=== PATIENT | female | born 1960 | race Caucasian/White ===

== ENCOUNTER 2024-05-28 13:13 | Outpatient (OUT) | payer MEDICARE, SELFPAY ==
--- NOTE | 2024-05-28 | CONS_ITS ---
CONSULTATION DATE: 05/28/2024 TO: Katerina Motley M.D. CHIEF COMPLAINT: Includes right mid lumbar back pain. HISTORY OF PRESENT ILLNESS: Review of systems, past medical/surgical history were obtained and documented on the health questionnaire and is available upon request. She is a 64-year-old female who reports having pain for the last 40 years; however, over the last several years, she has had exacerbation of pain symptoms, which occurred spontaneously, increased gradually to its present state. In the past, she has undergone an epidural injection and a rhizotomy using radiofrequency ablation of the medial branches. Details of this are unknown, but appear to be focused on the L4-5 and L5-S1 levels, in terms of radiofrequency ablation. She reports, despite the improvement of her pain symptoms, the original pain still is significant and alters her quality of life, level of functioning and sleep pattern. CURRENT MEDICATION: Includes Aleve one tablet a day, which she has been taking for several years now, with varying degrees of relief. She has been intolerant to muscle relaxants such as Flexeril or Skelaxin which improved her symptoms but made her somewhat groggy. EXAMINATION: Notable for patient having dysesthesia and hyperesthesia along the distribution of the right L5 dermatome. She appears to have 5/5 strength involving her right EHL, and straight leg raise was equivocally positive at 90 degrees. She has significant myofascial spasm of the lumbar paravertebral muscles with myalgia. She had increasing pain symptoms with lumbar axial loading maneuvers. IMPRESSION: Our impression is patient with chronic pain secondary to possible right L5 radiculopathy along with discogenic pain, myofascial spasm with myalgia. RECOMMENDATIONS: I recommend she consider proceeding with a lumbar MRI without contrast, lumbar spine films, PA and lateral views, using a skin marker; aquatic therapy and baclofen 10 mg, half a pill to one pill at h.s. Will follow up with the patient after she undergoes the imaging studies. As part of providing excellent, safe, comprehensive care, the following was completed at our patient's visit: 1. A medication reconciliation and review to ensure accurate knowledge of current/active medications, including asking our patients to inform us about any vyty-yeo-ujxblai medications or herbal remedies/nutritional supplements/alternative remedies. 2. A review to specifically ensure our patients have had annual screening for: elevated body mass index (BMI, see intake chart for exact total), tobacco use, screening for depression, and screening for unhealthy alcohol use. When screening is concerning, patients are provided with education and the specific recommendation to discuss the concerning health issue and treatment options with their primary care provider. PASCALE
== END 2024-05-28 13:14 | disposition home or self-care (01) ==
LOC: PM 13:13
PROVIDERS: PCP Family Medicine; Visit Provider Anesthesiology Pain Medicine
DX: M47.26 Other spondylosis with radiculopathy, lumbar region (principal); M41.86 Other forms of scoliosis, lumbar region; G89.4 Chronic pain syndrome; M62.838 Other muscle spasm
CPT/HCPCS: 72110; G0463

== ENCOUNTER 2024-05-28 14:19 | Outpatient (OUT) | payer MEDICARE, SELFPAY ==
--- NOTE | 2024-05-28 14:26 | XR_ITS ---
[facility] [place] [id number] Patient Name: SEAN JAMA MRN: [facility]:[id number] date: 1960 Sex: F Assigned Patient Location: [facility] Current Patient Location: Accession/Order Number: [id number] Exam Date: 05/28/2024 14:36 Report Date: 05/29/2024 07:53 At the request of: YA PHIPPS Procedure: XR lumbar spine min 4V EXAMINATION: XR lumbar spine min 4V HISTORY: Lumbar Neuritis COMPARISON: No relevant comparison available. FINDINGS: BONES: Rotatory levoscoliosis centered at the L2 level. Moderate to severe diffuse degenerative spondylosis and facet osteoarthropathy DISC SPACES: Moderate to severe multilevel disc space narrowing PARASPINOUS: Negative. No paraspinous abnormality is seen. OTHER: Negative. XR/XR lumbar spine min 4V IMPRESSION: Moderate to severe degenerative changes with rotatory levoscoliosis Electronically authenticated by: JESSICA PRICE Date: 05/29/2024 07:53
== END 2024-05-28 14:20 | disposition home or self-care (01) ==
LOC: RAD 14:21
PROVIDERS: PCP Family Medicine; Visit Provider Anesthesiology Pain Medicine
DX: M47.26 Other spondylosis with radiculopathy, lumbar region (principal); M41.86 Other forms of scoliosis, lumbar region
CPT/HCPCS: 72110

== ENCOUNTER 2024-06-07 13:25 | Outpatient (OUT) | payer MEDICARE, SELFPAY ==
--- NOTE | 2024-06-07 13:31 | MR_ITS ---
[address] [address] Patient Name: SEAN JAMA MRN: [facility]:[id number] date: 1960 Sex: F Assigned Patient Location: MRI Current Patient Location: Accession/Order Number: [id number] Exam Date: 06/07/2024 13:50 Report Date: 06/09/2024 08:48 At the request of: YA PHIPPS Procedure: MR lumbar spine wo con EXAMINATION: MR lumbar spine wo con HISTORY: Lumbar Neuritis ; chronic lumbar pain COMPARISON: XR lumbar spine 05/28/2024 TECHNIQUE: A variety of imaging planes and parameters were utilized for visualization of suspected pathology. FINDINGS: For the purposes of numbering, sagittal T2 image # 11 extends from the T10 vertebral body superiorly to the L4 level inferiorly. PARASPINAL AREA: Normal with no visible mass. BONES: Prominent levoscoliosis of thoracolumbar spine. No fracture, spondylolisthesis, or bone lesion. CORD/CAUDA EQUINA: Normal caliber, contour, and signal intensity. DISC LEVELS: 12-L1: T11-T12 moderate left foramen narrowing secondary to facet arthropathy and ligamentum flavum thickening. Mild left foraminal disc bulging. T12-L1 moderate right foraminal narrowing secondary to moderate foraminal disc bulging and mild facet arthropathy. L1-L2: Early degenerative disc disease is present without focal protrusion or neural impingement. L2-L3: Mild central canal narrowing. Moderate right and mild left foramen narrowing. Mild diffuse disc bulging, and moderate disc height reduction on the right lateral margin. Mild degenerative facet arthropathy, right greater than left. L3-L4: Marked central canal and right foramen narrowing. Moderate left foramen narrowing. Moderate diffuse disc bulging with marked disc height reduction along right margin. Moderate degenerative facet arthropathy, right greater than left. L4-L5: Mild central canal and right foramen narrowing. Moderate left foramen narrowing. Mild diffuse disc bulging without significant disc height reduction. Mild degenerative facet arthropathy, left greater than right. L5-S1: No significant central canal narrowing. Mild right, marked left foramen narrowing. Moderate broad-based disc bulging into the left paracentral and foraminal region. Moderate left, mild right degenerative facet arthropathy. Moderate disc height reduction on left margin. MR/MR lumbar spine wo con IMPRESSION: 1. Prominent levoscoliosis of lumbar spine resulting in multilevel disc space narrowing along the concave curvature of the spine. 2. Multilevel central canal and foraminal stenosis involving T11-T12 through L5-S1. Electronically authenticated by: LANA MOSS Date: 06/09/2024 08:48
== END 2024-06-07 13:26 | disposition home or self-care (01) ==
LOC: MRI 13:27
PROVIDERS: PCP Family Medicine; Visit Provider Anesthesiology Pain Medicine
DX: M54.16 Radiculopathy, lumbar region (principal); M48.062 Spinal stenosis, lumbar region with neurogenic claudication
CPT/HCPCS: 72148

== ENCOUNTER 2024-07-02 12:44 | Outpatient (OUT) | payer MEDICARE, SELFPAY ==
--- NOTE | 2024-07-02 | CONS_ITS ---
CONSULTATION DATE: 07/02/2024 TO: Jasmeet Motley D.O. CHIEF COMPLAINT: Includes right low back pain. HISTORY: She rates the pain as 6/10, deep aching in character, increased with activities such as standing, walking and performing transitioning maneuvers. She feels improvement with the application of heat. She denies any change in bowel and bladder habits. She reports progressive weakness of her right lower extremity. CURRENT MEDICATION: Includes Aleve which she has been on for at least the last six months and is offering her marginal relief. EXAM: Notable for patient having mild hypoesthesia long the right L4 dermatome, 3/5 strength of her right anterior tibialis and quadriceps, with depressed right patellar reflex. Straight leg raise is equivocally positive at 90 degrees. She had no signs consistent with myelopathy. IMPRESSION: Our impression is patient with chronic pain secondary to right L3- L4 radiculopathy with spinal stenosis. RECOMMENDATIONS: I recommend she discontinue baclofen. Will trial her on Zonegran 50 mg pills, 1-2 at h.s. Have her consult with a spine surgeon. She is requesting < > referral with Dr. Cruz. As part of providing excellent, safe, comprehensive care, the following was completed at our patient's visit: 1. A medication reconciliation and review to ensure accurate knowledge of current/active medications, including asking our patients to inform us about any [id number]-[id number] medications or herbal remedies/nutritional supplements/alternative remedies. 2. A review to specifically ensure our patients have had annual screening for: elevated body mass index (BMI, see intake chart for exact total), tobacco use, screening for depression, and screening for unhealthy alcohol use. When screening is concerning, patients are provided with education and the specific recommendation to discuss the concerning health issue and treatment options with their primary care provider. PASCALE
== END 2024-07-02 12:45 | disposition home or self-care (01) ==
PROVIDERS: PCP Family Medicine; Visit Provider Anesthesiology Pain Medicine
DX: M54.16 Radiculopathy, lumbar region (principal); M48.061 Spinal stenosis, lumbar region without neurogenic claudication; G89.29 Other chronic pain
CPT/HCPCS: G0463

== ENCOUNTER 2024-07-16 06:47 | Day surgery (SDC) | payer MEDICARE, SELFPAY ==
[2024-07-16 07:01] VITALS: BP 129/86; PULSE 66; TEMP 36.8; O2SAT 98
[2024-07-16 07:57] VITALS: BP 132/75; PULSE 63; O2SAT 100
[2024-07-16 07:58] VITALS: BP 129/76; PULSE 60; O2SAT 99
[2024-07-16] MEDS: 0.9 % SODIUM CHLORIDE 10 ML SYRINGE - SALINE FLUSH INJ (08:04)
[2024-07-16] MEDS: IOHEXOL 240 MG/ML - 10 ML VIAL INJ (08:05)
[2024-07-16] MEDS: BUPIVACAINE HCL 0.25% PF 25 MG/10 ML VIAL INJ (08:05)
[2024-07-16] MEDS: LIDOCAINE HCL 2% 400 MG/20 ML MDV 5 ML INJ (08:05)
[2024-07-16] MEDS: METHYLPREDNISOLONE ACETATE 80 MG/ML VIAL INJ (08:06)
--- NOTE | 2024-07-16 08:41 | P.ON_ITS ---
Date of procedure: 07/16/24 Pre-op diagnosis: Lumbar radiculopathy Post-op diagnosis: same as pre-op Procedure: Lumbar 3/4 Epidural Steroid Injection Under fluoroscopic guidance Immediate complications none Solution used for injection: Marcaine 0.25% 2mL, 2cc Normal saline, Depo-Medrol 80mg Omnipaque 3 mL Anesthesia local 2% lidocaine up to 4ml Timeout process compliant After informed consent obtained. Patient brought to the procedure room placed in the prone position. Skin overlying the area was prepped and draped in a sterile fashion using betadine. 25 gauge needle used to raise a skin wheel with local anesthetic over the target area identified under fluoroscopy. A 17 gauge Touhy needle Was inserted over the anesthetized area and directed towards the inter- space under fluoroscopic guidance. Epidural space was identified with loss of resistance technique to air. Needle Tip placement confirmed with injection of contrast solution in AP and Lateral views. Steroid solution was then injected. Anesthesia: Local Surgeon: Shon Haas Condition: stable
== END 2024-07-16 08:09 | disposition home or self-care (01) ==
LOC: SURGOUT 06:48
PROVIDERS: PCP Family Medicine; Visit Provider Anesthesiology Pain Medicine
DX: M54.16 Radiculopathy, lumbar region (principal)
CPT/HCPCS: 62323; J0665; J1010; Q9966

== ENCOUNTER 2024-09-30 13:54 | Outpatient (OUT) | payer MEDICARE, SELFPAY ==
--- NOTE | 2024-09-30 14:51 | P.CN_ITS ---
Consult Note: HPI Data of Consult Patient: known to practice within the last 3 years Consult date: 09/30/24 Requesting Physician: Ketty Alan MD Primary Care Provider: MACARENA LENNON Consult Narrative Reason for consult: right low back pain Narrative: 64yof who presents for assessment. notes persistence of right low back pain. imaging shows multilevel facet arthropathy in lumbar spine. recently evaluated by neurosurgery, who recommends right l3-4, l4-5 medial branch block with possible rfa. continues in a series of provider directed home exercises >6 weeks, without lasting benefit. denies adverse med side effects. cc:: CC: Ketty Alan MD Review of Systems ROS Status of ROS 10 or more systems reviewed and unremark able except as noted in history and below Meds Home Medications and Allergies Home Medications ?Medication ?Instructions ?Recorded ?Confirmed ?Type THYROID SUPPLEMENT 05/28/24 History fluoxetine 20 mg capsule 20 mg PO DAILY 05/28/24 05/28/24 History levothyroxine 100 mcg tablet 100 mcg PO DAILY 05/28/24 05/28/24 History (Synthroid) magnesium 250 mg tablet 250 mg PO DAILY 05/28/24 05/28/24 History multivitamin 1 tab PO DAILY 05/28/24 05/28/24 History naproxen sodium 220 mg capsule 220 mg PO BID PRN pain 05/28/24 05/28/24 History (Aleve) niacin 100 mg tablet 100 mg PO DAILY 05/28/24 05/28/24 History omega 5-cxz-snm-fish oil 1,000 mg 1 cap PO DAILY 05/28/24 05/28/24 History (120 mg-180 mg) capsule (Fish Oil) zonisamide 50 mg capsule See Rx Instructions .Route 07/02/24 Rx .COMPLEX #50 caps Allergies Allergy/AdvReac Type Severity Reaction Status Date / Time zonisamide (From Zonegran) AdvReac Mild Headache Verified 07/16/24 07:04 Exam Narrative Exam Narrative: Psych-alert and oriented x 3. Attentive and appropriate, constitutionally normal, displays normal mood and affect per situation.? There are no obvious deficits in memory, reasoning, or intellect.? Skin-no obvious rashes, bruising, erythema noted to the patient's area of pain. Extremities- extremities are warm with minimal edema and palpable pulses. Lumbar-no significant tenderness to palpation noted in the lumbar spine and paraspinal musculature.? Pain is elicited with extension, and lateral rotation of the lumbar spine. Range of motion is slightly diminished with these motions due to pain. Coordination remains intact.? Gait remains non-antalgic. Assessment and Plan Assessment and Plan (1) Lumbar stenosis with neurogenic claudication: (2) Lumbar spondylosis: Plan 64yof who presents for assessment. failed conservative measures, as noted. imaging reviewed, as noted. given symptoms and imaging, prudent to attempt right l3-4, l4-5 medial branch block under fluoroscopic guidance with intention of proceeding to radiofrequency ablation, as recommended by her neurosurgeon. she is in agreement. meds reviewed, no changes. also discussed that she may be candidate for spinal cord stimulator at some point in the future, as she is adamant that she does not want a lumbar fusion. follow up after procedure.
== END 2024-09-30 13:55 | disposition home or self-care (01) ==
LOC: PM 13:54
PROVIDERS: PCP Family Medicine; Visit Provider Anesthesiology
DX: M48.062 Spinal stenosis, lumbar region with neurogenic claudication (principal); M47.816 Spondylosis without myelopathy or radiculopathy, lumbar region
CPT/HCPCS: G0463

== ENCOUNTER 2024-10-07 08:13 | Day surgery (SDC) | payer MEDICARE, SELFPAY ==
[2024-10-07 08:24] VITALS: BP 125/84; PULSE 82; TEMP 36.6; O2SAT 99
[2024-10-07 08:55] VITALS: BP 129/62; PULSE 74; O2SAT 100
[2024-10-07 08:56] VITALS: BP 130/64; PULSE 65; O2SAT 100
[2024-10-07] MEDS: BUPIVACAINE HCL 0.25% PF 25 MG/10 ML VIAL 8 ML INJ (08:59)
[2024-10-07] MEDS: LIDOCAINE HCL 2% 400 MG/20 ML MDV INJ (08:59)
--- NOTE | 2024-10-07 08:59 | W.PM.PROCNOT ---
Date of procedure: 10/07/24 Pre-op diagnosis: Pain due to lumbar spondylosis without myelopathy Post-op diagnosis: same as pre-op Procedure: Procedure: Right L3-4, L4-5 medial branch block Medications: Bupivacaine 0.25% 3cc The patient was seen and examined in the preoperative holding area.? An informed consent was obtained and placed on the chart.? The patient was brought to the medical procedure unit and placed in the prone position.? A timeout was completed verifying correct patient, procedure site, positioning, plan, and special equipment.? Using aseptic technique, the needle was placed at right L3. Under direct fluoroscopic visualization a Quincke-tipped spinal needle was advanced to the junction of the superior articulating process with the transverse process at the designated medial branch segment.? Preceded by negative aspiration, the above-mentioned injectate was placed in 1 mL aliquots.? The procedure was completed at right L4, 5.? The needle was removed and insertion site was covered.? The patient was taken to the postprocedural recovery area and monitored for an appropriate length of time before found suitable for discharge in the company of a responsible adult. Anesthesia: Local Surgeon: Ketty Alan Pathology: none sent Condition: stable Disposition: no change
== END 2024-10-07 09:04 | disposition home or self-care (01) ==
LOC: SURGOUT 08:14
PROVIDERS: Visit Provider Anesthesiology
DX: M47.816 Spondylosis without myelopathy or radiculopathy, lumbar region (principal); M54.50 Low back pain, unspecified
CPT/HCPCS: 64493; 64494; J0665

== ENCOUNTER 2024-10-17 14:44 | Outpatient (OUT) | payer MEDICARE, SELFPAY ==
--- NOTE | 2024-10-17 15:16 | P.CN_ITS ---
Consult Note: HPI Data of Consult Patient: known to practice within the last 3 years Requesting Physician: Angelica Betts NP Primary Care Provider: Non-Staff Physician, Consult Narrative Reason for consult: right low back pain Narrative: 64yof who presents for assessment. notes persistence of right low back pain. imaging shows multilevel facet arthropathy in lumbar spine, as well as degenerative changes and stenosis. continues in a series of provider directed home exercises >6 weeks, without lasting benefit. denies adverse med side ef fects. recently evaluated by neurosurgery, who recommends right l3-4, l4-5 medial branch block with possible rfa which pt completed with 80% improvement while anesthetized. Pt has had numerous RFAs of the lumbar spine in the past, pt reports they have never worked for her the most relief she has gotten is 1 week improvement. pt underwent an L3/4 KASSANDRA with significant improvement for one week prior to lumbar MBBs. Patient would like to proceed with spinal cord stimulator trial rather than proceed with spinal surgery or lumbar RFA. cc:: CC: Angelica Betts NP Review of Systems ROS Status of ROS 10 or more systems reviewed and unremark able except as noted in history and below Musculoskeletal Reports: back pain PFSH [facility] Medical History (Updated 10/17/24 @ 15:28 by Angelica Betts NP) Asthma ?J45.909 - Unspecified asthma, uncomplicated (ICD-10) Osteoarthritis ?M19.90 - Unspecified osteoarthritis, unspecified site (ICD-10) TMJ (dislocation of temporomandibular joint) ?S03.00XA - Dislocation of jaw, unspecified side, initial encounter (ICD-10) Upper back pain ?M54.9 - Dorsalgia, unspecified (ICD-10) Neck pain ?M54.2 - Cervicalgia (ICD-10) Low back pain ?M54.50 - Low back pain, unspecified (ICD-10) Hypothyroid ?E03.9 - Hypothyroidism, unspecified (ICD-10) Surgical History S/P brachioplasty ?Z98.890 - Other specified postprocedural states (ICD-10) Hx of breast reduction, elective ?Z98.890 - Other specified postprocedural states (ICD-10) History of cholecystectomy ?Z90.49 - Acquired absence of other specified parts of digestive tract (ICD- 10) History of bilateral knee arthroplasty ?Z96.653 - Presence of artificial knee joint, bilateral (ICD-10) Meds Home Medications and Allergies Home Medications ?Medication ?Instructions ?Recorded ?Confirmed ?Type fluoxetine 20 mg capsule 20 mg PO DAILY 05/28/24 10/07/24 History levothyroxine 100 mcg tablet 100 mcg PO DAILY 05/28/24 10/07/24 History (Synthroid) magnesium 250 mg tablet 250 mg PO DAILY 05/28/24 10/07/24 History multivitamin 1 tab PO DAILY 05/28/24 10/07/24 History naproxen sodium 220 mg capsule 220 mg PO BID PRN pain 05/28/24 10/07/24 History (Aleve) Allergies Allergy/AdvReac Type Severity Reaction Status Date / Time zonisamide (From Zonegran) AdvReac Mild Headache Verified 07/16/24 07:04 Exam Narrative Exam Narrative: Psych-alert and oriented x 3. Attentive and appropriate, constitutionally normal, displays normal mood and affect per situation.? There are no obvious deficits in memory, reasoning, or intellect.? Skin-no obvious rashes, bruising, erythema noted to the patient's area of pain. Extremities- extremities are warm with minimal edema and palpable pulses. Lumbar-no significant tenderness to palpation noted in the lumbar spine and paraspinal musculature.? Pain is elicited with extension, and lateral rotation of the lumbar spine. Range of motion is slightly diminished with these motions due to pain. Coordination remains intact.? Gait remains non-antalgic. Assessment and Plan Assessment and Plan (1) Lumbar spondylosis: (2) Lumbar stenosis with neurogenic claudication: (3) Lumbar radiculopathy: Plan 64yof who presents for assessment. failed conservative measures, as noted. imaging reviewed, as noted. will proceed with 2 lead [employer] spinal cord stimulator trial under fluoroscopy with IV sedation for chronic low back pain secondary to lumbar spondylosis, lumbar stenosis with NC, and lumbar radiculopathy. pt to complete psychiatric evaluation. f/u for lead removal in office
== END 2024-10-17 14:45 | disposition home or self-care (01) ==
LOC: PM 14:44
PROVIDERS: Visit Provider Nurse Practitioner
DX: M47.816 Spondylosis without myelopathy or radiculopathy, lumbar region (principal); M48.062 Spinal stenosis, lumbar region with neurogenic claudication; M54.16 Radiculopathy, lumbar region
CPT/HCPCS: G0463